=== PATIENT | female | born 2000 | race African-American/Black ===

== ENCOUNTER 2021-08-28 18:11 | Emergency (ER) | payer OTHER ==
[~2021-08-28] VITALS: Ht 165.1 cm; Wt 85.1 kg
[2021-08-28 19:36] LABS: BASO % 0.4 % (0.0-1.0); EOS % 0.3 % (0.0-3.0); HEMATOCRIT 40.5 % (36.0-47.0); HEMOGLOBIN 13.4 g/dl (12.0-15.5); LYMPH # 2.6 10^3/uL (1.5-5.0); LYMPH % 24.5 % (24.0-44.0); MEAN CORPUSCULAR HEMOGLOBIN 29.1 pg (27.0-33.0); MEAN CORPUSCULAR HGB CONC 33.1 g/dl (32.0-36.5); MEAN CORPUSCULAR VOLUME 87.9 fl (80.0-96.0); MONO # 0.6 10^3/uL (0.0-0.8); MONO % 5.6 % (2.0-8.0); NEUTROPHILS # 7.2 10^3/uL (1.5-8.5); NEUTROPHILS % 68.8 % (36.0-66.0); PLATELET COUNT, AUTOMATED 327 10^3/uL (150-450); RED BLOOD COUNT 4.61 10^6/uL (4.00-5.40); WHITE BLOOD COUNT 10.5 10^3/uL (4.0-10.0)
[2021-08-28 19:48] LABS: ALBUMIN 3.7 GM/DL (3.2-5.2); ALT/SGPT 15 U/L (12-78); BILIRUBIN,DIRECT 0.1 MG/DL (0.0-0.2); BILIRUBIN,TOTAL 0.5 MG/DL (0.2-1.0); BLOOD UREA NITROGEN 13 MG/DL (7-18); CALCIUM LEVEL 9.3 MG/DL (8.5-10.1); CARBON DIOXIDE LEVEL 26 MEQ/L (21-32); CHLORIDE LEVEL 110 MEQ/L (98-107); CREATININE FOR GFR 0.85 MG/DL (0.55-1.30); GLOMERULAR FILTRATION RATE > 60.0 (>60); GLUCOSE, FASTING 107 MG/DL (70-100); LIPASE 87 U/L (73-393); POTASSIUM SERUM 4.3 MEQ/L (3.5-5.1); SODIUM LEVEL 141 MEQ/L (136-145); TOTAL PROTEIN 7.6 GM/DL (6.4-8.2)
[2021-08-28 19:58] LABS: HCG, SERUM QUALITATIVE NEGATIVE (NEGATIVE)
[2021-08-29] MEDS ORDERED: diphenhydrAMINE 50MG/ML VIAL (J1200) IV STA (01:17)
[2021-08-29] MEDS ORDERED: NS 1,000 ML IV ONE (01:20)
[2021-08-29] MEDS ORDERED: METOCLOPRAMIDE INJ 10MG/2ML VIAL (J2765 PER 1) IV ONE (01:20)
[2021-08-29] MEDS ORDERED: KETOROLAC 30 MG/ML 1ML VIAL IV ONE (01:20)
[2021-08-29] MEDS ORDERED: METAL LOCK LOOP XX ONE (03:32)
[2021-08-29 05:12] VITALS: BP 98/60
[2021-08-29] MEDS ORDERED: KETO10TAB PO (05:16)
== END 2021-08-29 05:30 | disposition home or self-care (01) ==
LOC: M ED 18:11
DX: N83.291 Other ovarian cyst, right side (principal)
CPT/HCPCS: 76856; 80048; 80076; 81001; 83690; 84703; 85025; 87086; 93976; 96361; 96374; 96375; 99284; J1200; J1885; J2765

== ENCOUNTER 2021-11-04 08:21 | Day surgery (SDC) | payer OTHER ==
[~2021-11-04] VITALS: Ht 165.1 cm; Wt 86.6 kg
[~2021-11-04 08:21] MED LIST: ACETAMINOPHEN 650 MG SUPP PR ONE; BIRTH CONTROL PATCH TOP; BUPIVACAINE HCL 0.25% 10ML VIAL SC ONE; KETO10TAB PO; NS 1,000 ML IV SCH
[2021-11-04 08:53] LABS: HEMATOCRIT 40.2 % (36.0-47.0); MEAN CORPUSCULAR HEMOGLOBIN 29.7 pg (27.0-33.0); MEAN CORPUSCULAR HGB CONC 32.3 g/dl (32.0-36.5); MEAN CORPUSCULAR VOLUME 91.8 fl (80.0-96.0); PLATELET COUNT, AUTOMATED 318 10^3/uL (150-450); RED BLOOD COUNT 4.38 10^6/uL (4.00-5.40)
[2021-11-04] MEDS ORDERED: LR 1,000 ML IV SCH ×2 (08:55→11:30)
[2021-11-04] MEDS ORDERED: INSULIN LISPRO (NovoLOG) PER UNIT SC PRN ×2 (08:55→11:30)
[2021-11-04 09:14] LABS: BLOOD UREA NITROGEN 10 MG/DL (7-18); CALCIUM LEVEL 8.9 MG/DL (8.5-10.1); CARBON DIOXIDE LEVEL 24 MEQ/L (21-32); CHLORIDE LEVEL 111 MEQ/L (98-107); CREATININE FOR GFR 0.74 MG/DL (0.55-1.30); GLOMERULAR FILTRATION RATE > 60.0 (>60); GLUCOSE, FASTING 102 MG/DL (70-100); HCG, SERUM QUANTITATIVE < 1.0 MIU/ML; POTASSIUM SERUM 4.1 MEQ/L (3.5-5.1); SODIUM LEVEL 140 MEQ/L (136-145)
[2021-11-04] MEDS ORDERED: MIDAZOLAM INJ 2MG/2ML VIAL (J2250 PER 1MG) As Ordered ONE (09:40)
[2021-11-04] MEDS ORDERED: ROCURONIUM BROMIDE 50 MG/5 ML VIAL As Ordered ONE (09:40)
[2021-11-04] MEDS ORDERED: LIDOCAINE 2% 100MG/5ML SDV (FOR ANES.) As Ordered ONE (09:40)
[2021-11-04] MEDS ORDERED: fentaNYL 100 MCG/2 ML INJECTION As Ordered ONE ×2 (09:40→10:37)
[2021-11-04] MEDS ORDERED: propofoL 200 MG/20 ML VIAL As Ordered ONE (09:40)
[2021-11-04] MEDS ORDERED: ACETAMINOPHEN 650 MG SUPP As Ordered ONE (10:07)
[2021-11-04] MEDS ORDERED: BUPIVACAINE HCL 0.5% 30ML VIAL As Ordered ONE (10:08)
[2021-11-04] MEDS ORDERED: METHYLENE BLUE 0.5% (5MG/ML) 10 ML AMP (PROVAYBLUE) As Ordered ONE (10:09)
[2021-11-04] MEDS ORDERED: dexameTHASONE 4 MG/ML 1ML VIAL (J1100 PER 1MG) As Ordered ONE (10:35)
[2021-11-04] MEDS ORDERED: KETOROLAC 60MG 2ML VIAL As Ordered ONE (10:37)
[2021-11-04] MEDS ORDERED: METOCLOPRAMIDE INJ 10MG/2ML VIAL (J2765 PER 1) As Ordered ONE (10:37)
[2021-11-04] MEDS ORDERED: ONDANSETRON 4MG/2ML VIAL As Ordered ONE (10:37)
[2021-11-04] MEDS ORDERED: SUGAMMADEX SODIUM 500 MG/5 ML VIAL (BRIDION) As Ordered ONE (10:37)
[2021-11-04] MEDS ORDERED: ONDANSETRON 4MG/2ML VIAL IV PRN (11:30)
[2021-11-04] MEDS ORDERED: fentaNYL 100 MCG/2 ML INJECTION IV PRN (11:30)
[2021-11-04] MEDS ORDERED: MORPHINE 2 MG/ML 1ML VIAL IV PRN (11:30)
[2021-11-04] MEDS: oxyCODONE 5MG TAB PO PRN ×2 (12:22→14:01)
[2021-11-04] MEDS ORDERED: oxyCODONE 5MG TAB As Ordered ONE (13:55)
[2021-11-04 14:28] VITALS: BP 124/76
[2021-11-04] MEDS ORDERED: KETOROLAC 30 MG/ML 1ML VIAL IV SCH (17:00)
== END 2021-11-04 14:30 | disposition home or self-care (01) ==
LOC: M SDC 08:21
PROVIDERS: ATTEND Obstetrics & Gynecology
DX: N80.9 Endometriosis, unspecified (principal); D64.9 Anemia, unspecified; G43.909 Migraine, unspecified, not intractable, without status migrainosus; Z91.040 Latex allergy status; Z79.899 Other long term (current) drug therapy
CPT/HCPCS: 36415; 49321; 80048; 84702; 85027; 88304; J1100; J1885; J2250; J2405; J2765; J3010

== ENCOUNTER 2022-03-24 17:11 | Emergency (ER) | payer OTHER ==
[~2022-03-24] VITALS: Ht 170.2 cm; Wt 85.0 kg
[~2022-03-24 17:11] MED LIST changes: -ACETAMINOPHEN 650 MG SUPP PR ONE; -BUPIVACAINE HCL 0.25% 10ML VIAL SC ONE; -NS 1,000 ML IV SCH
[2022-03-24 17:54] VITALS: BP 110/75
[2022-03-24] MEDS ORDERED: ACETAMINOPHEN 500 MG TAB PO ONE (18:30)
== END 2022-03-24 19:50 | disposition home or self-care (01) ==
LOC: M ED 17:11 → EDBD 17:11 → M ED 19:50
DX: S13.4XXA Sprain of ligaments of cervical spine, initial encounter (principal); M25.511 Pain in right shoulder; V43.52XA Car driver injured in collision with other type car in traffic accident, initial encounter; Z79.3 Long term (current) use of hormonal contraceptives; Z91.040 Latex allergy status

== ENCOUNTER 2022-03-30 18:45 | Emergency (ER) | payer OTHER ==
[~2022-03-30] VITALS: Ht 165.1 cm; Wt 82.7 kg
[2022-03-30] MEDS ORDERED: IBUPROFEN 400MG TAB PO ONE (21:10)
[2022-03-30] MEDS ORDERED: PSEUDOEPHEDRINE 30 MG TAB PO STA (22:32)
[2022-03-30] MEDS ORDERED: METOCLOPRAMIDE INJ 10MG/2ML VIAL (J2765 PER 1) IV ONE (22:35)
[2022-03-30] MEDS ORDERED: ACETAMINOPHEN 500 MG TAB PO ONE (22:35)
[2022-03-30] MEDS ORDERED: BENZONATATE 100MG CAPSULE PO ONE (22:35)
[2022-03-30] MEDS ORDERED: NS 1,000 ML IV ONE (22:35)
[2022-03-30] MEDS ORDERED: methylPREDNISolone 125MG 2ML VIAL IV ONE (23:35)
[2022-03-30 23:55] VITALS: BP 116/67
[2022-03-30] MEDS ORDERED: PSEU120T19 PO (23:59)
[2022-03-30] MEDS ORDERED: NAPR-837 PO (23:59)
[2022-03-30] MEDS ORDERED: MUCI1TAB16 PO (23:59)
[2022-03-30] MEDS ORDERED: ONDA4TAB6 PO (23:59)
[2022-03-30] MEDS ORDERED: LIDO2SOL17 PO (23:59)
[2022-03-31] MEDS ORDERED: BENZ200C70 PO (00:07)
[2022-03-31] MEDS ORDERED: guaiFENesin ER 600 MG TAB PO SCH (09:00)
== END 2022-03-31 00:35 | disposition home or self-care (01) ==
LOC: M ED 18:45
DX: U07.1 COVID-19 (principal); R51.9 Headache, unspecified; J02.9 Acute pharyngitis, unspecified; Z91.040 Latex allergy status; Z79.899 Other long term (current) drug therapy
CPT/HCPCS: 71045; 96361; 96374; 96375; 99284; J2765; J2930

== ENCOUNTER 2023-04-23 18:55 | Outpatient (CLI) | payer OTHER ==
[~2023-04-23] VITALS: Ht 165.1 cm; Wt 98.8 kg
[~2023-04-23 18:55] MED LIST changes: +BENZ200C70 PO; +LIDO15SO PO; +MUCI1TAB16 PO; +NAPR-837 PO; +ONDA4TAB6 PO; +PSEU120T19 PO
[2023-04-23 19:14] VITALS: BP 100/55
[2023-04-23 19:24] VITALS: BP 110/59
[2023-04-23] MEDS ORDERED: PRENTAB9 PO (19:25)
[2023-04-23] MEDS ORDERED: HOME MED LIST COMPLETE! XX SCH (19:25)
[2023-04-23] MEDS ORDERED: ASPI81CH33 PO (19:25)
[2023-04-23 19:38] VITALS: BP 106/58
[2023-04-23 21:26] LABS: APPEARANCE, URINE CLEAR (CLEAR); BACTERIA, URINE AUTO 2+ (NEGATIVE); BILIRUBIN, URINE AUTO NEGATIVE (NEGATIVE); BLOOD, URINE BLOOD NEGATIVE (NEGATIVE); COLOR, URINE STRAW (YELLOW); GLUCOSE, URINE (UA) AUTO NEGATIVE (NEGATIVE); KETONE, URINE AUTO NEGATIVE (NEGATIVE); LEUKOCYTE ESTERASE, URINE AUTO NEGATIVE (NEGATIVE); NITRITE, URINE AUTO NEGATIVE (NEGATIVE); PROTEIN, URINE AUTO NEGATIVE (NEGATIVE); RBC, URINE AUTO 0 /HPF (0-3); SPECIFIC GRAVITY URINE AUTO 1.004 (1.002-1.035); SQUAMOUS EPITHELIAL CELL UR AU 0 /HPF (0-6); UROBILINOGEN, URINE AUTO 0.2 mg/dL (0.0-2.0); WBC, URINE AUTO 1 /HPF (0-3)
[2023-04-23 23:01] LABS: CHLAMYDIA DNA AMPLIFICATION NEGATIVE (NEGATIVE); GC DNA AMPLIFICATION NEGATIVE (NEGATIVE)
== END 2023-04-23 21:27 | disposition home or self-care (01) ==
LOC: M LDO 18:55
PROVIDERS: ATTEND Obstetrics & Gynecology
DX: O26.892 Other specified pregnancy related conditions, second trimester (principal); N89.8 Other specified noninflammatory disorders of vagina; Z3A.26 26 weeks gestation of pregnancy; Z91.040 Latex allergy status; Z79.82 Long term (current) use of aspirin
CPT/HCPCS: 59025; 76815; 81001; 87661; 87810; 87850; G0463